=== PATIENT | female | born 1975 | race Caucasian/White ===

== ENCOUNTER 2024-04-12 11:01 | Emergency (ER) | payer OTHER ==
--- NOTE | 2024-04-12 11:13 | ER ---
Nurse's Notes [facility] Name: Hafsa Marin Age: 48 yrs Sex: Female : 1975 Arrival Date: 04/12/2024 Time: 11:01 Bed IW1 Private MD: Diagnosis: Periapical abscess without sinus Presentation: 04/12 11:07 Chief complaint: Patient states: "for the past 2 weeks, I've had an toothache and mb9 abscess. I've been to my dentist and he put me on antibiotics on 03/31. It's hurting.". Coronavirus screen: At this time, the client does not indicate any symptoms associated with coronavirus-19. Ebola Screen: No symptoms or risks identified at this time. Initial Sepsis Screen: Does the patient meet any 2 criteria? No. Patient's initial sepsis screen is negative. Does the patient have a suspected source of infection? No. Patient's initial sepsis screen is negative. Risk Assessment: Do you want to hurt yourself or someone else? Patient reports no desire to harm self or others. Onset of symptoms was 2023. 11:07 Method Of Arrival: Ambulatory mb9 11:07 Acuity: JANIS 4 mb9 Triage Assessment: 11:09 General: Appears in no apparent distress. Behavior is calm, cooperative. Pain: mb9 Complains of pain in mouth Quality of pain is described as throbbing. EENT: Oral mucosa is moist. Poor dentition noted. EENT: Reports pain in mouth. Neuro: Desouza Agitation-Sedation Scale (RASS): 0 - Alert and Calm Level of Consciousness is awake, alert, obeys commands, Oriented to person, place, time, situation, Appropriate for age. Cardiovascular: Patient's skin is warm and dry. Respiratory: Airway is patent Respiratory effort is even, unlabored, Respiratory pattern is regular, symmetrical. GI: No signs and/or symptoms were reported involving the gastrointestinal system. : No signs and/or symptoms were reported regarding the genitourinary system. Derm: Skin is pink, warm \\T\\ dry. Musculoskeletal: Range of motion: intact in all extremities. Historical: - Allergies: 11:08 PENICILLINS; mb9 11:08 Sulfa (Sulfonamide Antibiotics); mb9 - PMHx: 11:08 Fibromyalgia; Lupus erythematosus; mb9 - PSHx: 11:08 ablation; Cholecystectomy; L shoulder SX; laminectomy/discectomy; mb9 - Immunization history:: Adult Immunizations up to date. - Infectious Disease History:: Denies. - Social history:: Smoking status: Patient denies any tobacco usage or history of. Screenin:09 [facility] ED Fall Risk Assessment (Adult) History of falling in the last 3 months, mb9 including since admission No falls in past 3 months (0 pts) Confusion or Disorientation No (0 pts) Intoxicated or Sedated No (0 pts) Impaired Gait No (0 pts) Mobility Assist Device Used No (0 pt) Altered Elimination No (0 pt) Score/Fall Risk Level 0 - 2 = Low Risk Oriented to surroundings, Maintained a safe environment, Educated pt \\T\\ family on fall prevention, incl call for assistance when getting out of bed. Abuse screen: Denies threats or abuse. Nutritional screening: No deficits noted. Tuberculosis screening: No symptoms or risk factors identified. Vital Signs: 11:07 BP 153 / 88; Pulse 78; Resp 18; Temp 98.3(O); Pulse Ox 100% on R/A; Weight 72.57 kg; mb9 Height 5 ft. 9 in. ; Pain 10/10; 11:07 Body Mass Index 23.63 (72.57 kg, 175.26 cm) mb9 11:07 Pain Scale: Adult mb9 ED Course: 11:03 Patient arrived in ED. mg5 11:06 Julianne Westbrook FNP-C [facility]. kb 11:06 Danny Rocha MD is Attending Physician. kb 11:08 Triage completed. mb9 11:09 Arm band placed on. mb9 11:10 Patient has correct armband on for positive identification. Provided Education on: mb9 antibiotics . 11:10 No provider procedures requiring assistance completed. Patient did not have IV access mb9 during this emergency room visit. 11:12 Nina Pereira RN is Primary Nurse. mb9 Administered Medications: 11:10 Drug: Clindamycin PO 300 mg PO once Route: PO; mb9 11:16 Follow up: Response: No adverse reaction mb9 Medication: 11:10 VIS not applicable for this client. mb9 Outcome: 11:12 Discharge ordered by . nallely 11:16 Discharged to home ambulatory, mb9 11:16 Condition: stable 11:16 Discharge instructions given to patient, Instructed on discharge instructions, follow up and referral plans. Demonstrated understanding of instructions, follow-up care, medications, Prescriptions given X 1, 11:16 Patient left the ED. [email or web address] Signatures: Julianne Westbrook FNP-C FNP-Nina Humphrey RN RN [email or web address] Loreto Mello mg5 Corrections: (The following items were deleted from the chart) 11:11 11:07 Pulse 78bpm; Resp 18bpm; Pulse Ox 100%; vickey hurd
--- NOTE | 2024-04-12 11:13 | EDPHYS ---
Physician Documentation [facility] Name: Hafsa Marin Age: 48 yrs Sex: Female : 1975 Arrival Date: 04/12/2024 Time: 11:01 Bed IW1 Private MD: ED Physician Danny Rocha HPI: 04/12 11:14 This 48 yrs old Female presents to ER via Ambulatory with complaints of Toothache. kb 11:14 Pt is a 48 year old female who presents for tooth pain that started 2 weeks ago. States kb she has a long history of tooth abscesses, called her dentist and was prescribed clindamycin on 03/31/24. Completed antibiotics on 04/07 and was seen by dentist on 04/08. Has a root canal scheduled for 05/02/24 but is now having pain to another tooth on the same side that the dentist has been watching for a developing abscess. Came in to get another round of antibiotics and will call dentist on Sunday morning to try to get in sooner. Historical: - Allergies: 11:08 PENICILLINS; mb9 11:08 Sulfa (Sulfonamide Antibiotics); mb9 - PMHx: 11:08 Fibromyalgia; Lupus erythematosus; mb9 - PSHx: 11:08 ablation; Cholecystectomy; L shoulder SX; laminectomy/discectomy; mb9 - Immunization history:: Adult Immunizations up to date. - Infectious Disease History:: Denies. - Social history:: Smoking status: Patient denies any tobacco usage or history of. ROS: 11:12 Constitutional: As per HPI kb Exam: 11:12 Constitutional: This is a well developed, well nourished patient who is awake, alert, kb and in no acute distress. Head/Face: Normocephalic, atraumatic. Cardiovascular: Regular rate Respiratory: Respirations even and unlabored. No increased work of breathing. Talking in full sentences Abdomen/GI: Soft, non-tender. No distention Skin: Warm, dry with normal turgor. Normal color. MS/ Extremity: Pulses equal, no cyanosis. Neurovascular intact. Full, normal range of motion. Neuro: Awake and alert, GCS 15, oriented to person, place, time, and situation. Moves all extremities. Normal gait. 11:12 ENT: Dental exam: gum swelling, that is mild, specifically in the lower right second bicuspid (#29), lower right first molar (#30) and lower right second molar (#31), pain, that is moderate, specifically in the lower right second bicuspid (#29) and lower right first molar (#30), erythema to gums, Vital Signs: 11:07 BP 153 / 88; Pulse 78; Resp 18; Temp 98.3(O); Pulse Ox 100% on R/A; Weight 72.57 kg; mb9 Height 5 ft. 9 in. ; Pain 10/10; 11:07 Body Mass Index 23.63 (72.57 kg, 175.26 cm) mb9 11:07 Pain Scale: Adult mb9 MDM: 11:06 Patient medically screened. kb 11:13 Differential diagnosis: dental caries, gingivitis, dental abscess, pericoronitis. Data kb reviewed: vital signs, nurses notes. Counseling: I had a detailed discussion with the patient and/or guardian regarding the historical points, exam findings, and any diagnostic results supporting the discharge/admit diagnosis, the need for outpatient follow up, a dentist, to return to the emergency department if symptoms worsen or persist or if there are any questions or concerns that arise at home. 11:13 Test considered but Not performed: CT: ct considered but pt is well appearing, kb afebrile, no facial swelling. Administered Medications: 11:10 Drug: Clindamycin PO 300 mg PO once Route: PO; mb9 11:16 Follow up: Response: No adverse reaction mb9 Disposition: 12:06 Co-signature as Attending Physician, Danny Rocha MD I reviewed the patient's care rn provided by the Advanced Practice Provider and agree with the diagnosis and treatment plan. Disposition Summary: 04/12/24 11:12 Discharge Ordered Notes: Location: Home kb Condition: Stable kb Diagnosis - Periapical abscess without sinus kb Followup: kb - With: Emergency Department - When: As needed - Reason: Worsening of condition Followup: kb - With: Private Physician - When: 2 - 3 days - Reason: Recheck today's complaints, Continuance of care, Re-evaluation by your physician Discharge Instructions: - Discharge Summary Sheet kb - Dental Pain, [id number] kb - Dental Abscess, [id number] kb Forms: - Medication Reconciliation Form kb - Antibiotic Education kb - Prescription Opioid Use kb - Patient Portal Instructions kb - Leadership Thank You Letter kb Prescriptions: - Clindamycin HCl 300 mg Oral Capsule - take 1 capsule ORAL route every 6 hours for 10 days; 40 capsule; Refills: 0, kb Product Selection Permitted Signatures: Julianne Westbrook FNP-C FNP-Ckb Nieto, Roman, MD MD rn Wilkerson, Mary Beth, RN RN mb9
[2024-04-12 11:33] VITALS: BP 153/88; TEMP 98.3; O2SAT 100
== END 2024-04-12 11:16 | disposition home or self-care (01) ==
LOC: ER 11:01
DX: K04.7 Periapical abscess without sinus (principal)
CPT/HCPCS: 99283

== ENCOUNTER 2024-12-16 11:49 | Emergency (ER) | payer OTHER ==
--- NOTE | 2024-12-16 13:27 | RAD REPORT ---
EXAMINATION: ONE VIEW CHEST XR CLINICAL INDICATION: COVID +;Cough TECHNIQUE: Frontal chest projection is submitted. Examination is limited by patient positioning and t echnique. COMPARISON: No prior exam. FINDINGS: The lungs are well inflated and clear. The heart is upper limit of normal in size. No displaced fract ures identified. Proximal left humerus hardware. IMPRESSION: No acute intrathoracic abnormalities.
--- NOTE | 2024-12-16 14:29 | EDPHYS ---
Physician Documentation [facility] Name: Hafsa Marin Age: 48 yrs Sex: Female : 1975 Arrival Date: 12/16/2024 Time: 11:49 Bed DX3 Private MD: ED Physician Danny Rocha HPI: 12/17 07:22 This 48 yrs old Female presents to ER via Ambulatory with complaints of Covid+. rn 07:22 The patient or guardian reports cough. Onset: The symptoms/episode began/occurred 2 rn day(s) ago. Severity of symptoms: At their worst the symptoms were mild, in the emergency department the symptoms have resolved. The patient has experienced a previous episode. Patient reports COVID-positive, sick for 2 days with cough and congestion with fatigue. Denies shortness of breath. Came for medication. Reports has lupus.. 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 - Infectious Disease History:: Denies. - Social history:: Smoking status: Patient denies any tobacco usage or history of. - Family history:: not pertinent. - Hospitalizations: : No recent hospitalization is reported. ROS: 12/17 07:22 Constitutional: Positive for subjective fever and chills Cardiovascular: Negative for rn chest pain, palpitations, and edema, Respiratory: Positive for cough, negative for shortness of breath Abdomen/GI: Positive for decreased appetite, negative for abdominal pain Neuro: Positive for headache and generalized malaise Exam: 07:22 Constitutional: This is a well developed, well nourished patient who is awake, alert, rn and in no acute distress. Cardiovascular: Regular rate and rhythm. No pulse deficits. Respiratory: Speaking full sentences, unlabored. No increased work of breathing or retractions Neuro: Awake and alert, GCS 15 Vital Signs: 12/16 12:17 BP 127 / 87; Pulse 84; Resp 18; Temp 98.4; Pulse Ox 100% ; Weight 72.57 kg; Height 5 ap3 ft. 9 in. ; Pain 4/10; 12:17 Body Mass Index 23.63 (72.57 kg, 175.26 cm) ap3 12:17 Pain Scale: Adult ap3 MDM: 11:58 Medical Screening Exam initiated rn 12/17 07:22 Differential Diagnosis: Bronchitis Upper Respiratory Infection Viral Syndrome rn Pneumonia. Data reviewed: vital signs, nurses notes, radiologic studies, plain films, and as a result, I will discharge patient. Independent interpretation of the following test(s) in the Emergency Department X-Ray: My interpretation is Chest x-ray images negative for pneumonia per my interpretation. Counseling: I had a detailed discussion with the patient and/or guardian regarding the historical points, exam findings, and any diagnostic results supporting the discharge/admit diagnosis, radiology results, the need for outpatient follow up, to return to the emergency department if symptoms worsen or persist or if there are any questions or concerns that arise at home. Special discussion: I discussed with the patient/guardian in detail that at this point there is no indication for admission to the hospital. It is understood, however, that if the symptoms persist or worsen the patient needs to return immediately for re-evaluation. 12/16 12:02 Order name: XRAY Chest (1 view); Complete Time: 14:28 rn Administered Medications: No medications were administered Disposition Summary: 12/16/24 14:28 Discharge Ordered Notes: Location: Home rn Problem: new rn Symptoms: are unchanged rn Condition: Stable rn Diagnosis - SARS-associated coronavirus as the cause of diseases classified elsewhere rn Followup: rn - With: Private Physician - When: As needed - Reason: Recheck today's complaints, Re-evaluation by your physician Discharge Instructions: - Discharge Summary Sheet rn - COVID-19 rn - 10 Things You Can Do to Manage Your COVID-19 Symptoms at Home - [facility] (04/22/2021) rn Forms: - Medication Reconciliation Form rn - Antibiotic rn first assistant - Prescription Opioid Use rn - Patient Portal Instructions rn - Leadership Thank You Letter rn Prescriptions: - Paxlovid 300 mg (150 mg x 2)-100 mg Oral Tablet, Dose Pack - take 1 dose pack ORAL route as directed on dose pack for 5 days take TWO 150 mg rn tablets of nirmatrelvir with ONE 100 mg tablet of ritonavir twice daily for 5 days; 1 packet; Refills: 0, Product Selection Permitted Signatures: Dispatcher [employer] EDDanny Jacob MD MD rn Sadaf Grider RN RN ap3
--- NOTE | 2024-12-16 14:29 | ER ---
Nurse's Notes [facility] Name: Hafsa Marin Age: 48 yrs Sex: Female : 1975 Arrival Date: 12/16/2024 Time: 11:49 Bed DX3 Private MD: Diagnosis: SARS-associated coronavirus as the cause of diseases classified elsewhere Presentation: 12/16 12:17 Chief complaint: Patient states: she has been having covid symptoms since 12/14/24. ap3 .patient is complaining of sore throat, cough, runny nose, nausea, painful breathing and body aches. Coronavirus screen: Client presents with at least one sign or symptom that may indicate coronavirus-19. Ebola Screen: No symptoms or risks identified at this time. Initial Sepsis Screen: Does the patient meet any 2 criteria? No. Patient's initial sepsis screen is negative. Does the patient have a suspected source of infection? No. Patient's initial sepsis screen is negative. Risk Assessment: Do you want to hurt yourself or someone else? Patient reports no desire to harm self or others. Onset of symptoms was December 14, 2024. 12:17 Method Of Arrival: Ambulatory ap3 12:17 Acuity: JANIS 3 ap3 Triage Assessment: 12:19 General: Appears in no apparent distress. Behavior is calm, cooperative, appropriate ap3 for age. Pain: Complains of pain in body aches. Neuro: Level of Consciousness is awake, alert, obeys commands, Oriented to person, place, time, situation, Appropriate for age. Cardiovascular: Patient's skin is warm and dry. Respiratory: Airway is patent Respiratory effort is even, unlabored, Respiratory pattern is regular, symmetrical. Respiratory: Reports cough that is. 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 - Infectious Disease History:: Denies. - Social history:: Smoking status: Patient denies any tobacco usage or history of. - Family history:: not pertinent. - Hospitalizations: : No recent hospitalization is reported. Screenin:20 [facility] ED Fall Risk Assessment (Adult) History of falling in the last 3 months, ap3 including since admission No falls in past 3 months (0 pts) Confusion or Disorientation No (0 pts) Intoxicated or Sedated No (0 pts) Impaired Gait No (0 pts) Mobility Assist Device Used No (0 pt) Altered Elimination No (0 pt) Score/Fall Risk Level 0 - 2 = Low Risk Oriented to surroundings, Maintained a safe environment, Educated pt \T\ family on fall prevention, incl call for assistance when getting out of bed, Assessed \T\ reinforced patient's understanding of fall precautions, Hourly rounding (assess needs \T\ fall precautionary measures) done, Used ambulatory aids as needed (educated on \T\ assisted with). Abuse screen: Denies threats or abuse. Nutritional screening: No deficits noted. Tuberculosis screening: No symptoms or risk factors identified. Vital Signs: 12:17 BP 127 / 87; Pulse 84; Resp 18; Temp 98.4; Pulse Ox 100% ; Weight 72.57 kg; Height 5 ap3 ft. 9 in. ; Pain 4/10; 12:17 Body Mass Index 23.63 (72.57 kg, 175.26 cm) ap3 12:17 Pain Scale: Adult ap3 ED Course: 11:52 Patient arrived in ED. mr 11:58 Danny Rocha MD is Attending Physician. rn 12:19 Triage completed. ap3 12:20 Arm band placed on right wrist. ap3 13:22 XRAY Chest (1 view) In Process Unspecified. EDMS 14:35 Patient has correct armband on for positive identification. Provided Education on: ap3 discharge instructions. 14:35 No provider procedures requiring assistance completed. Patient did not have IV access ap3 during this emergency room visit. Administered Medications: No medications were administered Medication: 14:36 VIS not applicable for this client. ap3 Outcome: 14:28 Discharge ordered by . rn 14:35 Discharged to home ambulatory, ap3 14:35 Condition: good 14:35 Discharge instructions given to patient, Instructed on discharge instructions, follow up and referral plans. medication usage, Demonstrated understanding of instructions, follow-up care, medications, Prescriptions given X 1, 14:36 Patient left the ED. ap3 Signatures: Dispatcher [employer] Nina Hutton, Reg Reg Danny Burroughs MD MD rn Prokisch, Amanda, RN RN ap3
[2024-12-16 14:43] VITALS: BP 127/87; TEMP 98.4; O2SAT 100
== END 2024-12-16 14:36 | disposition home or self-care (01) ==
LOC: ER 11:49
DX: U07.1 COVID-19 (principal)
CPT/HCPCS: 71045; 99283

== ENCOUNTER 2025-01-15 17:27 | Inpatient (IN) | payer OTHER ==
[2025-01-15] MEDS ORDERED: METOCLOPRAMIDE 10 MG/2mL INJ ONE (18:18)
[2025-01-15] MEDS ORDERED: NA CHLORIDE 0.9% 1,000 ML ONE ×2 (18:19→20:57)
[2025-01-15] MEDS ORDERED: NA CHLORIDE 0.9% 50 ML ONE (18:19)
[2025-01-15] MEDS ORDERED: MORPHINE 4 MG/ML SYR ONE (18:19)
[2025-01-15 18:29] LABS: Absolute Eosinophils 0.1 K/uL (0-0.5); Absolute Monocytes 0.8 K/uL (0.1-1.3); Absolute Neutrophil 8.1 K/uL (1.8-8.0); Basophils % 0.3 % (0-1.3); Eosinophils % 0.5 % (0-4.4); Hematocrit 36.3 % (36.0-45.0); Hemoglobin 12.8 g/dL (12.0-15.0); Lymphocytes % 9.9 % (15.3-44.8); MCH 34.6 pg (27.0-35.0); MCHC 35.2 g/dL (32.0-36.0); MCV 98.3 fL (80-100); MPV 7.4 fL (7.6-11.3); Monocytes % 7.7 % (3.3-12.3); Neutrophils % 81.6 % (41.7-73.7); Platelets 349 thou/uL (152-406); Red Cell Distribution Width 13.5 % (12.1-15.2)
[2025-01-15 18:37] LABS: PT Prothrombin Time 11.4 SECONDS (10-13.0)
[2025-01-15 18:53] LABS: ALT/SGPT 23 U/L (13-56); AST/SGOT 22 U/L (15-37); Albumin 3.5 g/dL (3.4-5.0); Albumin/Globulin Ratio 1.1 (1.1-1.8); Alkaline Phosphatase 63 U/L (45-117); Anion Gap 8.6 mEq/L (5.0-15.0); BUN Blood Urea Nitrogen 7 mg/dL (7-18); Bicarbonate 28 mEq/L (21-32); Bilirubin Total 0.5 mg/dL (0.2-1.0); Globulin 3.1 g/dL (2.3-3.5); Glomerular Filtration Rate 100 ml/min (=/>90); Glucose Level 141 mg/dL (74-106); Magnesium 2.1 mg/dL (1.6-2.4); Potassium 3.6 mEq/L (3.5-5.1); Protein, Total 6.6 g/dL (6.4-8.2); Sodium Level 140 mEq/L (136-145); Troponin High Sensitivity 3.9 pg/mL (<58.9)
[2025-01-15 18:54] LABS: Bilirubin Direct < 0.2 mg/dL (0-0.2); Bilirubin Indirect, Calculated 0.3 mg/dL (0.2-0.8); Lipase > 5000 U/L (13-75)
--- NOTE | 2025-01-15 19:10 | RAD REPORT ---
EXAMINATION: ONE VIEW CHEST XR CLINICAL INDICATION: Female, 49 years old.,upper abdomen pain TECHNIQUE: Frontal chest projection is submitted. Examination is limited by patient positioning and t echnique. COMPARISON: 12/16/2024 FINDINGS: Hazy left perihilar opacity. Decreased inspiratory effort limits evaluation. No pneumothorax or siza ble effusion. The heart is normal in size. Mediastinal contours are unremarkable. IMPRESSION: Hazy left perihilar opacity which could reflect atelectasis or early airspace disease.
[2025-01-15] MEDS ORDERED: DIAZEPAM 10 MG/2 ML INJ SYRINGE ONE (19:19)
--- NOTE | 2025-01-15 20:40 | RAD REPORT ---
EXAMINATION: CT Abdomen Pelvis W Contrast CLINICAL INDICATION: Female, 49 years old. ABD PAIN TECHNIQUE: CT abdomen and pelvis was performed, after the administration of IV contrast, as per [facility] protocol. Axial, sagittal and coronal reconstructions were obtained. One or more of the following dose reduction techniques were used: Automated exposure control, adjustment of the mA and k V according to patient size, and iterative reconstruction. Unless otherwise specified, incidental findings do not require dedicated imaging follow-up. COMPARISON: No prior exam. FINDINGS: LOWER CHEST: The visualized lung bases are clear. LIVER: Normal in size and contour. No focal lesion. BILIARY SYSTEM: Status post cholecystectomy. Mild central pneumobilia. CBD stent in place. SPLEEN: Normal size. No focal lesion. PANCREAS: Swelling of the body and tail of the pancreas, with prominent surrounding fat stranding and nonlocalized fluid tracking along the retroperitoneum to the left paracolic gutter. No mass, ductal dilation. ADRENALS: Normal; no mass. KIDNEYS: Normal size and contour. No hydronephrosis. URINARY BLADDER: Unremarkable. GASTROINTESTINAL TRACT: No evidence of free air, bowel obstruction or abscess. APPENDIX: Normal appendix. LYMPH NODES: No lymphadenopathy. MUSCULOSKELETAL: No acute or suspicious osseous abnormality. ADDITIONAL FINDINGS: Bilateral adnexal cystic lesions, with posterior trace pelvic fluid. Largest cys tic lesion is on the right measuring 3.8 cm. Uterus is retroverted. IMPRESSION: Sequelae of acute pancreatitis of the body and tail of the pancreas. Trace pelvic fluid, likely physiologic, with bilateral adnexal cystic lesions. THIS REPORT CONTAINS FINDINGS THAT MAY BE CRITICAL TO PATIENT CARE. The findings were verbally commun icated via telephone to Marianna Goldberg M.D. on 01/15/2025 8:33 PM.
[2025-01-15] MEDS ORDERED: HYDROMORPHONE HCL 1 MG/ML INJ ONE ×2 (20:57→22:41)
--- NOTE | 2025-01-15 23:12 | ER ---
Nurse's Notes [facility] Name: Hafsa Marin Age: 49 yrs Sex: Female : 1975 Arrival Date: 01/15/2025 Time: 17:27 Bed 6 Private MD: Diagnosis: Acute pancreatitis without necrosis or infection, unspecified Presentation: 01/15 18:04 Chief complaint: Patient states: had an ERCP this morning , had lunch, took a nap and iw then she vomited and now is having pain in upper abdomen. Coronavirus screen: At this time, the client does not indicate any symptoms associated with coronavirus-19. Ebola Screen: No symptoms or risks identified at this time. Initial Sepsis Screen: Does the patient meet any 2 criteria? No. Patient's initial sepsis screen is negative. Does the patient have a suspected source of infection? No. Patient's initial sepsis screen is negative. Risk Assessment: Do you want to hurt yourself or someone else? Patient reports no desire to harm self or others. Onset of symptoms was January 15, 2025. 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 - Infectious Disease History:: Denies. - Social history:: Smoking status: unknown. Screenin:34 [facility] ED Fall Risk Assessment (Adult) History of falling in the last 3 months, ph including since admission No falls in past 3 months (0 pts) Confusion or Disorientation No (0 pts) Intoxicated or Sedated No (0 pts) Impaired Gait No (0 pts) Mobility Assist Device Used No (0 pt) Altered Elimination No (0 pt) Score/Fall Risk Level 0 - 2 = Low Risk Oriented to surroundings, Maintained a safe environment, Hourly rounding (assess needs \T\ fall precautionary measures) done. Abuse screen: Denies threats or abuse. Denies injuries from another. Nutritional screening: No deficits noted. Tuberculosis screening: No symptoms or risk factors identified. Assessment: 18:35 General: Appears in no apparent distress. uncomfortable, well groomed, Behavior is ph calm, cooperative, appropriate for age. Pain: Complains of pain in epigastric area, right upper quadrant and left upper quadrant. Neuro: Level of Consciousness is awake, alert, obeys commands, Oriented to person, place, time, situation. Cardiovascular: Capillary refill < 3 seconds in bilateral fingers Patient's skin is warm and dry. Respiratory: Airway is patent Respiratory effort is even, unlabored. GI: Abdomen is non-distended, Bowel sounds present X 4 quads. Abd is soft X 4 quads Reports upper abdominal pain, nausea, vomiting. Derm: Skin is pink, warm \T\ dry. 19:10 Reassessment: Patient appears in no apparent distress at this time. Patient and/or bm8 family updated on plan of care and expected duration. Pain level reassessed. Patient is alert, oriented x 3, equal unlabored respirations, skin warm/dry/pink. received report from BILL DAMON PT is lying on side c/o spasming abd and requesting pain medication. 20:17 Reassessment: Patient and/or family updated on plan of care and expected duration. Pain bm8 level reassessed. Patient is alert, oriented x 3, equal unlabored respirations, skin warm/dry/pink. Patient states symptoms have improved. 22:14 Reassessment: Patient appears in no apparent distress at this time. Patient and/or bm8 family updated on plan of care and expected duration. Pain level reassessed. Patient is alert, oriented x 3, equal unlabored respirations, skin warm/dry/pink. Patient states feeling better. Patient states symptoms have improved. Vital Signs: 18:04 BP 124 / 85; Pulse 74; Resp 18; Temp 97.6; Pulse Ox 98% on R/A; Weight 72.57 kg; Height iw 5 ft. 9 in. ; Pain 10/10; 18:36 BP 120 / 79; Pulse 70; Resp 18; Pulse Ox 95% on R/A; ph 20:17 BP 128 / 86; Pulse 64; Resp 18; Temp 97.6; Pulse Ox 99% ; Pain 2/10; bm8 22:14 BP 121 / 84; Pulse 65; Resp 18; Temp 97.6; Pulse Ox 96% on R/A; Pain 3/10; bm8 01/16 00:22 BP 130 / 81; Pulse 96; Resp 18; Temp 97.6; Pulse Ox 96% ; Pain 7/10; bm8 01/15 18:04 Body Mass Index 23.63 (72.57 kg, 175.26 cm) iw 01/15 18:04 Pain Scale: Adult iw 20:17 Pain Scale: Adult bm8 22:14 Pain Scale: Adult bm8 01/16 00:22 Pain Scale: Adult bm8 Jm Coma Score: 01/15 19:10 Eye Response: spontaneous(4). Motor Response: obeys commands(6). Verbal Response: bm8 oriented(5). Total: 15. 20:17 Eye Response: spontaneous(4). Motor Response: obeys commands(6). Verbal Response: bm8 oriented(5). Total: 15. 22:14 Eye Response: spontaneous(4). Motor Response: obeys commands(6). Verbal Response: bm8 oriented(5). Total: 15. 01/16 00:22 Eye Response: spontaneous(4). Motor Response: obeys commands(6). Verbal Response: bm8 oriented(5). Total: 15. ED Course: 01/15 17:39 Patient arrived in ED. iw 17:48 Valdo Dejesus PA is PHCP. cp 17:48 Yordy Daily DO is Attending Physician. cp 18:05 Triage completed. iw 18:06 Arm band placed on. iw 18:08 Patient placed in an exam room, on a stretcher. ll1 18:11 Franci Sierra, RN is Primary Nurse. ph 18:23 XRAY Chest (1 view) In Process Unspecified. EDMS 18:35 Patient has correct armband on for positive identification. Bed in low position. Call ph light in reach. Side rails up X 1. Pulse ox on. NIBP on. Door closed. Noise minimized. Lights dimmed. Warm blanket given. Pillow given. 18:36 Initial lab(s) drawn, by ED staff, sent to lab. EKG done, by ED staff, reviewed by tasneem BILLS. Inserted saline lock: 20 gauge in right antecubital area, using aseptic technique. Blood collected. Flushed with 10 mL NS. 20:04 CT Abd/Pelvis - IV Contrast Only In Process Unspecified. EDMS 22:14 Provided Education on:. bm8 22:35 First set of blood cultures drawn by me. oe 22:50 Second set of blood cultures drawn by me. oe 23:00 Lactate w/ 2H reflex if indic. Sent. oe 23:00 Blood Culture Adult (2) Sent. oe 23:10 Prince Wade MD is Hospitalizing Provider. cp 01/16 00:23 No provider procedures requiring assistance completed. Patient admitted, IV remains in bm8 place. Administered Medications: 01/15 18:31 Drug: NS 0.9% IV 1000 ml IV at 1 bolus Per protocol; to be given as a bolus over 60 ph minutes Route: IV; Rate: 1 bolus; Site: right antecubital; 22:17 Follow up: Response: No adverse reaction; IV Status: Completed infusion bm8 18:32 Drug: metoCLOPramide IVP 10 mg IVP once; over 1 to 2 minutes Route: IVP; Site: right ph antecubital; 19:04 Follow up: Response: No adverse reaction; Nausea is decreased; Vomiting decreased ph 18:32 Drug: morphine IVP or IV 4 mg IVP once over 4 mins Route: IVP; Infused Over: 4 mins; ph Site: right antecubital; 19:04 Follow up: Response: No adverse reaction; Pain is decreased ph 19:20 Drug: Diazepam IVP 5 mg IVP once Route: IVP; Site: right antecubital; bm8 20:19 Follow up: Response: No adverse reaction bm8 21:04 Drug: NS 0.9% IV 1000 ml IV at 1000 ml once; to be given as a bolus over 60 minutes bm8 Route: IV; Rate: 1000 ml; Site: right antecubital; 22:16 Follow up: Response: No adverse reaction; IV Status: Completed infusion bm8 21:04 Drug: HYDROmorphone IVP 1 mg IVP once Route: IVP; Site: right antecubital; bm8 22:16 Follow up: Response: No adverse reaction bm8 22:42 Drug: HYDROmorphone IVP 1 mg IVP once Route: IVP; Site: right antecubital; bm8 01/16 00:02 Follow up: Response: No adverse reaction bm8 Medication: 01/15 18:35 VIS not applicable for this client. ph Outcome: 23:11 Decision to Hospitalize by Provider. cp 01/16 00:23 Admitted to Med/surg accompanied by nurse, via stretcher, room 216, with chart, bm8 Condition: stable Instructed on follow up and referral plans. the need for admit, Demonstrated understanding of instructions, follow-up care, medications, 00:45 Patient left the ED. bm8 Signatures: Dispatcher [employer] EDGracy Dennison, RN RN iw Franci Sierra RN RN ph Valdo Dejesus, NEGAR PA Jaxon Laura Lynsay, RN RN ll1 Karthik Page RN RN bm8 Corrections: (The following items were deleted from the chart) 01/15 18:06 18:04 BP 124 / 85; Pulse 74bpm; Resp 18bpm; Pulse Ox 98% RA; Temp 97.6F; iw iw
--- NOTE | 2025-01-15 23:12 | EDPHYS ---
Physician Documentation [facility] Name: Hafsa Marin Age: 49 yrs Sex: Female : 1975 Arrival Date: 01/15/2025 Time: 17:27 Bed 6 Private MD: ED Physician Yordy Daily HPI: 01/15 18:10 This 49 yrs old Female presents to ER via Ambulatory with complaints of Abdominal Pain, cp Vomiting. 18:10 The patient presents with abdominal pain in the epigastric area, in the upper abdomen. cp Onset: The symptoms/episode began/occurred today. The symptoms radiate to back. Associated signs and symptoms: Pertinent positives: nausea and vomiting, Pertinent negatives: constipation, diarrhea, fever. The symptoms are described as constant. 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 - Infectious Disease History:: Denies. - Social history:: Smoking status: unknown. ROS: 18:15 Constitutional: Negative for body aches, chills, fever, cp 18:15 Eyes: Negative for injury, pain, redness, and discharge, cp 18:15 ENT: Negative for drainage from ear(s), ear pain, sore throat, difficulty swallowing, difficulty handling secretions, 18:15 Cardiovascular: Negative for chest pain, edema, palpitations, 18:15 Respiratory: Negative for cough, shortness of breath, wheezing, 18:15 Abdomen/GI: Positive for abdominal pain, nausea and vomiting, of the epigastric area, right upper quadrant and left upper quadrant, Negative for diarrhea, constipation, 18:15 Back: Positive for radiated pain, 18:15 Neuro: Negative for altered mental status, dizziness, headache, weakness, 18:15 All other systems are negative, Exam: 18:20 Constitutional: The patient appears in no acute distress, alert, awake, cp non-diaphoretic, non-toxic, well developed, well nourished, uncomfortable, 18:20 Head/Face: Normocephalic, atraumatic. cp 18:20 Eyes: Periorbital structures: appear normal, Conjunctiva: normal, no exudate, no injection, Sclera: no appreciated abnormality, Lids and lashes: appear normal, bilaterally, 18:20 ENT: External ear(s): are unremarkable, Nose: is normal, Mouth: Lips: moist, Oral mucosa: moist, Posterior pharynx: Airway: no evidence of obstruction, patent, 18:20 Neck: ROM/movement: is normal, is supple, without pain, no range of motions limitations, 18:20 Chest/axilla: Inspection: normal, 18:20 Cardiovascular: Rate: normal, Rhythm: regular, Edema: is not appreciated, JVD: is not appreciated, 18:20 Respiratory: the patient does not display signs of respiratory distress, Respirations: normal, no use of accessory muscles, no retractions, labored breathing, is not present, Breath sounds: are clear throughout, no decreased breath sounds, no stridor, no wheezing, 18:20 Abdomen/GI: Inspection: abdomen appears normal, Bowel sounds: active, all quadrants, Palpation: soft, in all quadrants, severe abdominal tenderness, in the epigastric area, right upper quadrant and left upper quadrant, rebound tenderness, is not appreciated, voluntary guarding, is elicited in the epigastric area, right upper quadrant and left upper quadrant, 18:20 Neuro: Orientation: to person, place \T\ time. Mentation: is normal, Motor: moves all fours, strength is normal, 18:30 ECG was reviewed by the Attending Physician. cp Vital Signs: 18:04 BP 124 / 85; Pulse 74; Resp 18; Temp 97.6; Pulse Ox 98% on R/A; Weight 72.57 kg; Height iw 5 ft. 9 in. ; Pain 10/10; 18:36 BP 120 / 79; Pulse 70; Resp 18; Pulse Ox 95% on R/A; ph 20:17 BP 128 / 86; Pulse 64; Resp 18; Temp 97.6; Pulse Ox 99% ; Pain 2/10; bm8 22:14 BP 121 / 84; Pulse 65; Resp 18; Temp 97.6; Pulse Ox 96% on R/A; Pain 3/10; bm8 04/11 00:22 BP 130 / 81; Pulse 96; Resp 18; Temp 97.6; Pulse Ox 96% ; Pain 7/10; bm8 01/15 18:04 Body Mass Index 23.63 (72.57 kg, 175.26 cm) iw 01/15 18:04 Pain Scale: Adult iw 20:17 Pain Scale: Adult bm8 22:14 Pain Scale: Adult bm8 01/16 00:22 Pain Scale: Adult bm8 Jm Coma Score: 01/15 19:10 Eye Response: spontaneous(4). Motor Response: obeys commands(6). Verbal Response: bm8 oriented(5). Total: 15. 20:17 Eye Response: spontaneous(4). Motor Response: obeys commands(6). Verbal Response: bm8 oriented(5). Total: 15. 22:14 Eye Response: spontaneous(4). Motor Response: obeys commands(6). Verbal Response: bm8 oriented(5). Total: 15. 01/16 00:22 Eye Response: spontaneous(4). Motor Response: obeys commands(6). Verbal Response: bm8 oriented(5). Total: 15. MDM: 01/15 18:04 Medical Screening Exam initiated cp 20:45 Data reviewed: vital signs, nurses notes, lab test result(s), EKG, radiologic studies, cp CT scan, and as a result, I will admit patient. 20:56 ED course: spoke with Shoshana PEREZ, who will speak with DR Pierre concerning patient. cp 22:21 ED course: msg left on voicemail of DR Pierre for consult on patient as requested by DR noah Wade who requests GI consult. 22:55 ED course: no response from DR Pierre for consult. cp 01/15 18:08 Order name: Basic Metabolic Panel; Complete Time: 19:08 cp 01/15 19:08 Interpretation: Normal except: GLUC 141. cp 01/15 18:08 Order name: CBC with Diff; Complete Time: 19:08 cp 01/15 19:09 Interpretation: Normal except: RBC 3.70; MPV 7.4; YUDY% 81.6; LYM% 9.9; NEUT A 8.1. cp 01/15 18:08 Order name: LFT's; Complete Time: 19:08 cp 01/15 18:08 Order name: Magnesium; Complete Time: 19:08 cp 01/15 18:08 Order name: PT-INR; Complete Time: 19:08 cp 01/15 18:08 Order name: Troponin HS; Complete Time: 19:08 cp 01/15 18:08 Order name: Lipase; Complete Time: 19:08 cp 01/15 19:09 Interpretation: Abnormal: LIP > 5000. cp 01/15 20:49 Order name: Lactate w/ 2H reflex if indic. cp 01/15 20:49 Order name: Blood Culture Adult (2) cp 01/15 23:35 Order name: Magnesium EDMS 01/15 23:35 Order name: Phosphorus EDMS 01/15 23:35 Order name: Urinalysis w/ reflexes EDMS 01/15 23:35 Order name: CBC with Automated Diff EDMS 01/15 23:35 Order name: CBC with Automated Diff EDMS 01/15 23:35 Order name: Comprehensive Metabolic Panel EDNH 01/15 23:35 Order name: Comprehensive Metabolic Panel EDMS 01/15 18:08 Order name: XRAY Chest (1 view); Complete Time: 19:45 cp 01/15 19:45 Interpretation: Report review. 01/15 19:10 Order name: CT Abd/Pelvis - IV Contrast Only; Complete Time: 20:42 cp 01/15 20:42 Interpretation: Report reviewed. 01/15 18:08 Order name: Cardiac monitoring; Complete Time: 18:32 cp 01/15 18:08 Order name: EKG - Nurse/Tech; Complete Time: 18:32 cp 01/15 18:08 Order name: IV Saline Lock; Complete Time: 18:32 cp 01/15 18:08 Order name: Labs collected and sent; Complete Time: 18:32 cp 01/15 18:08 Order name: O2 Per Protocol; Complete Time: 18:32 cp 01/15 18:08 Order name: O2 Sat Monitoring; Complete Time: 18:32 cp EC:30 Rate is 63 beats/min. Rhythm is regular. FL interval is normal. QRS interval is normal. cp QT interval is normal. T waves are Inverted in leads aVL, aVR. Interpreted by me. Reviewed by me. Administered Medications: 18:31 Drug: NS 0.9% IV 1000 ml IV at 1 bolus Per protocol; to be given as a bolus over 60 ph minutes Route: IV; Rate: 1 bolus; Site: right antecubital; 22:17 Follow up: Response: No adverse reaction; IV Status: Completed infusion bm8 18:32 Drug: metoCLOPramide IVP 10 mg IVP once; over 1 to 2 minutes Route: IVP; Site: right ph antecubital; 19:04 Follow up: Response: No adverse reaction; Nausea is decreased; Vomiting decreased ph 18:32 Drug: morphine IVP or IV 4 mg IVP once over 4 mins Route: IVP; Infused Over: 4 mins; ph Site: right antecubital; 19:04 Follow up: Response: No adverse reaction; Pain is decreased ph 19:20 Drug: Diazepam IVP 5 mg IVP once Route: IVP; Site: right antecubital; bm8 20:19 Follow up: Response: No adverse reaction bm8 21:04 Drug: NS 0.9% IV 1000 ml IV at 1000 ml once; to be given as a bolus over 60 minutes bm8 Route: IV; Rate: 1000 ml; Site: right antecubital; 22:16 Follow up: Response: No adverse reaction; IV Status: Completed infusion bm8 21:04 Drug: HYDROmorphone IVP 1 mg IVP once Route: IVP; Site: right antecubital; bm8 22:16 Follow up: Response: No adverse reaction bm8 22:42 Drug: HYDROmorphone IVP 1 mg IVP once Route: IVP; Site: right antecubital; bm8 01/16 00:02 Follow up: Response: No adverse reaction bm8 Disposition: 01/15 22:21 I was immediately available on-site in the Emergency Department for consultation in the ms3 care of the patient. Disposition Summary: 01/15/25 23:11 Hospitalization Ordered Notes: Hospitalization Status: Inpatient Admission cp Provider: Prince noah Wade Location: Telemetry/MedSurg (Inpatient) cp Condition: Stable cp Problem: new cp Symptoms: have improved cp Bed/Room Type: Standard cp Room Assignment: 216(01/15/25 23:46) rv1 Diagnosis - Acute pancreatitis without necrosis or infection, unspecified cp Forms: - Medication Reconciliation Form cp - SBAR form cp - Leadership Thank You Letter cp Signatures: Dispatcher [employer] Gracy Thurston RN RN iw Hall, Patricia, RN RN ph Page, Corey, PA PA cp Sims, Marcus, DO DO ms3 Cheryle Lea rv1 Karthik Page, RN RN bm8 Corrections: (The following items were deleted from the chart) 18:08 18:08 BASIC METABOLIC PANEL+C.LAB.BRZ ordered. EDMS EDMS 18:08 18:08 CBC+H.LAB.BRZ ordered. EDMS EDMS 18:08 18:08 HEPATIC FUNCTION+C.LAB.BRZ ordered. EDMS EDMS 18:08 18:08 MAGNESIUM+C.LAB.BRZ ordered. EDMS EDMS 18:08 18:08 PROTIME (+INR)+COAG.LAB.BRZ ordered. EDMS EDMS 18:08 18:08 Troponin High Sensitivity+C.LAB.BRZ ordered. EDMS EDMS 18:08 18:08 LIPASE+C.LAB.BRZ ordered. EDMS EDMS 18:08 18:08 Chest Single View+RAD.RAD.BRZ ordered. EDMS EDMS 23:46 23:11 cp rv1
[2025-01-15] MEDS ORDERED: SODIUM CHLORIDE 0.9% 10ML INJ IV PRN (23:33)
--- NOTE | 2025-01-15 23:41 | P.HP ---
Certification for Inpatient Patient admitted to: Observation With expected LOS: <2 Midnights Practitioner: I am a practitioner with admitting privileges, knowledge of patient current condition, hospital course, and medical plan of care. Services: Services provided to patient in accordance with Admission requirements found in Title 42 Section 412.3 of the Code of Federal Regulations Patient History Date of Service: 01/15/25 Reason for admission: Intractable nausea and vomiting, abdominal pain History of Present Illness: Patient is a 49-year-old female with known past medical history of SLE currently on Plaquenil, and recently choledocholithiasis status post ERCP with common bile duct stent placement on 01/15. She presented to the ER a few hours after her procedure complaining of intractable nausea and vomiting, and abdominal pain. Patient was on clear liquid during the days leading up to her procedure. She states that she tried a hamburger after her procedure and developed the above symptoms. She is reporting a mildly bilious vomiting, nonbloody. She also has extreme abdominal pain. Denies fever or chills. CT abdomen and pelvis in the ER revealed sequela of pancreatitis. She has a lipase of more than 5000 and normal LFTs including bilirubin. 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 ER was unable to reach her. ER eventually reached out to Dr. Mercado, who stated to be willing to see the patient tomorrow if needed. Physical Examination - Physical Exam General: Acute distress HEENT: Atraumatic, Normocephalic, Sclerae nonicteric Cardiovascular: No edema, Normal pulses, Regular rate/rhythm, Normal S1 S2 Gastrointestinal: Tenderness Neurological: Normal speech - Studies Laboratory Data (last 24 hrs) 01/15/25 01/15/25 01/15/25 18:23 18:23 18:23 WBC 10.00 Hgb 12.8 Hct 36.3 Plt Count 349 PT 11.4 INR 1.00 Sodium 140 Potassium 3.6 BUN 7 Creatinine 0.73 Glucose 141 H Magnesium 2.1 Total Bilirubin 0.5 AST 22 ALT 23 Alkaline Phosphatase 63 Lipase > 5000 H Assessment and Plan - Problems (Diagnosis) (1) Post-ERCP acute pancreatitis Current Visit: Yes Status: Acute (2) Intractable nausea and vomiting Current Visit: Yes Status: Acute (3) SLE (systemic lupus erythematosus related syndrome) Current Visit: Yes Status: Acute - Plan Assessment This is a 49-year-old female who undergo ERCP and biliary stent placement today. She presented few hours after procedure for postprandial abdominal pain. Patient has been on clear liquid for several days and tried hamburger after her ERCP. She has evidence of pancreatitis with lipase more than 5000. CT abdomen and pelvis also revealed evidence of pancreatitis. Acute post ERCP pancreatitis Intractable nausea and vomiting SLE Plan: Will admit under observation Aggressive volume repletion with normal saline 150 cc/h N.p.o. for bowel rest Antiemetics and PPI on board Consult GI if needed. Please attempt to reach out to Dr. Lugo first, and if unavailable, reach out to Dr. Mcdaniel who is willing to see the patient if needed Patient is full code - Advance Directives Does patient have a Living Will: No Does patient have a Durable POA for Healthcare: No
[2025-01-15] MEDS ORDERED: NA CHLORIDE 0.9% 1,000 ML IV SCH (23:45)
[2025-01-16 01:29] VITALS: BMI 23.1
[2025-01-16] MEDS: ONDANSETRON 4 MG/2 ML VIAL IV PRN ×3 (01:40→21:44)
[2025-01-16] MEDS: HYDROMORPHONE HCL 1 MG/ML INJ IV PRN (01:40)
[2025-01-16] MEDS: NA CHLORIDE 0.9% 1,000 ML IV SCH (01:40)
[2025-01-16] MEDS: PANTOPRAZOLE 40 MG INJ IVP SCH (01:48)
[2025-01-16 04:26] LABS: Absolute Lymphocytes (CBC) 0.3 K/uL (0.7-4.9); Absolute Monocytes 0.7 K/uL (0.1-1.3); Absolute Neutrophil 9.6 K/uL (1.8-8.0); Basophils % 0.1 % (0-1.3); Hematocrit 37.5 % (36.0-45.0); Hemoglobin 12.9 g/dL (12.0-15.0); Lymphocytes % 3.3 % (15.3-44.8); MCH 34.2 pg (27.0-35.0); MCHC 34.5 g/dL (32.0-36.0); MCV 99.2 fL (80-100); MPV 7.7 fL (7.6-11.3); Monocytes % 6.4 % (3.3-12.3); Neutrophils % 90.2 % (41.7-73.7); Platelets 312 thou/uL (152-406); RBC Red Blood Cell Count 3.78 M/uL (3.86-4.86); Red Cell Distribution Width 13.9 % (12.1-15.2)
[2025-01-16 04:35] LABS: Albumin 3.3 g/dL (3.4-5.0); Albumin/Globulin Ratio 1.2 (1.1-1.8); Anion Gap 8.4 mEq/L (5.0-15.0); Bilirubin Total 0.7 mg/dL (0.2-1.0); Globulin 2.8 g/dL (2.3-3.5); Magnesium 1.9 mg/dL (1.6-2.4); Phosphorus 3.8 mg/dL (2.5-4.9); Potassium 4.4 mEq/L (3.5-5.1); Protein, Total 6.1 g/dL (6.4-8.2)
[2025-01-16 05:17] LABS: Band Neutrophils 5 % (0-1); Differential Total Cells Count 100; Lymphocytes 6 % (15-42); Monocytes 3 % (0-10); Segmented Neutrophils 86 % (40-80)
[2025-01-16 05:18] LABS: Blood Morphology Comment NOT SEEN (NOT SEEN); Platelet Estimate ADEQ
[2025-01-16] MEDS: TRAMADOL HCL 200 MG PO SCH (08:21)
[2025-01-16] MEDS: Ringers Lactate 500 ML IV ONE (08:27)
[2025-01-16] MEDS: HYDROXYCHLOROQUINE 200MG TAB PO SCH (08:30)
[2025-01-16] MEDS: MORPHINE 2 MG/ML SYR IV PRN ×2 (08:45→21:46)
[2025-01-16] MEDS ORDERED: Ringers Lactate 1,000 ML IV SCH (09:00)
[2025-01-16] MEDS: Ringers Lactate 1,000 ML IV SCH (09:32)
--- NOTE | 2025-01-16 14:15 | EKG ---
Test Date: 2025-01-15 Test Time: 18:23:16 Registry Rn: JOHN MEASUREMENT RESULTS: Intervals: Rate: 63 AL: 146 QRSD: 90 QT: 468 QTc: 478 Kirwin: P: 52 AL: 146 QRS: 90 T: 82 INTERPRETIVE STATEMENTS: Normal sinus rhythm Rightward axis Borderline ECG No previous ECG available for comparison Electronically Signed On 01-16-25 14:12:55 CDT by Tee Kaufman
--- NOTE | 2025-01-16 18:10 | P.PN ---
Subjective Date of Service: 01/16/25 Chief Complaint: Intractable nausea and vomiting, abdominal pain Patient with complaints of abdominal pain. Requested for Dilaudid to be changed to morphine which was done Review of Systems General: Unremarkable Eyes: Unremarkable ENT: Unremarkable Respiratory: Unremarkable Cardiovascular: Unremarkable Gastrointestinal: Abdominal Pain Musculoskeletal: Unremarkable Integumentary: Unremarkable Neurological: Unremarkable Physical Examination - Vital Signs Temperature: 99.3 F Blood Pressure: 141/71 Pulse: 99 Respirations: 16 Pulse Ox (%): 97 - Physical Exam General: Alert, Oriented x3 HEENT: Atraumatic, Normocephalic Respiratory: Clear to auscultation bilaterally, Normal air movement Cardiovascular: No edema, Normal pulses, Regular rate/rhythm Gastrointestinal: Normal bowel sounds Musculoskeletal: No clubbing, No swelling, No erythema Neurological: Normal gait, Normal speech, Normal strength at 5/5 x4 extr - Studies Laboratory Data (last 24 hrs) 01/15/25 01/15/25 01/15/25 18:23 18:23 18:23 WBC 10.00 Hgb 12.8 Hct 36.3 Plt Count 349 PT 11.4 INR 1.00 Sodium 140 Potassium 3.6 BUN 7 Creatinine 0.73 Glucose 141 H Magnesium 2.1 Total Bilirubin 0.5 AST 22 ALT 23 Alkaline Phosphatase 63 Lipase > 5000 H Assessment And Plan - Plan 1. Postoperative, ERCP acute pancreatitis - CT of abdomen/pelvis consistent with acute pancreatitis - Lipase markedly elevated greater than 5000 - Supportive therapy, IV fluids, pain control, n.p.o. status 2. DVT prophylaxis - SCDs
[2025-01-16 20:18] LABS: Specific Gravity > 1.030 (1.005-1.030); Sqamous Epithelial <5 /HPF (None Seen); Urine Bacteria None Seen /HPF (<20); Urine Bilirubin NEGATIVE (Negative); Urine Blood Negative (Negative); Urine Clarity Clear (Clear); Urine Color Yellow (Yellow); Urine Culture Reflex Order NOT NEEDED; Urine Glucose NEGATIVE (Negative); Urine Ketones NEGATIVE (Negative); Urine Microscopic Reflex YN ORDER UMIC; Urine Mucus 4+ /HPF (None Seen); Urine Nitrite NEGATIVE (Negative); Urine Protein 1+ (Negative); Urine RBC <5 /HPF (None Seen); Urine Urobilinogen Normal (Normal); Urine WBC <5 /HPF (<5)
[2025-01-16] MEDS: TIZANIDINE 4 MG TABLET PO SCH (21:00)
[2025-01-17 07:59] LABS: Absolute Basophils 0.1 K/uL (0-0.5); Absolute Lymphocytes (CBC) 0.6 K/uL (0.7-4.9); Absolute Neutrophil 12.7 K/uL (1.8-8.0); Basophils % 0.7 % (0-1.3); Eosinophils % 0.1 % (0-4.4); Hematocrit 37.8 % (36.0-45.0); Lymphocytes % 3.9 % (15.3-44.8); MCHC 34.5 g/dL (32.0-36.0); MCV 98.5 fL (80-100); MPV 7.6 fL (7.6-11.3); Neutrophils % 88.3 % (41.7-73.7); Platelets 282 thou/uL (152-406); RBC Red Blood Cell Count 3.84 M/uL (3.86-4.86)
[2025-01-17 08:19] LABS: Anion Gap 9.2 mEq/L (5.0-15.0); Magnesium 1.8 mg/dL (1.6-2.4); Potassium 4.2 mEq/L (3.5-5.1)
--- NOTE | 2025-01-17 09:38 | P.PN ---
Subjective Date of Service: 01/17/25 Chief Complaint: Intractable nausea and vomiting, abdominal pain No complaints, abdominal pain improved Review of Systems 10-point ROS is otherwise unremarkable Physical Examination - Vital Signs Temperature: 98.7 F Blood Pressure: 133/77 Pulse: 101 Respirations: 20 Pulse Ox (%): 90 - Physical Exam General: Alert, Oriented x3 HEENT: Atraumatic Neck: Supple Cardiovascular: No edema, Normal pulses, Regular rate/rhythm Gastrointestinal: Normal bowel sounds, Soft and benign, Non-distended Neurological: Normal gait, Normal speech, Normal strength at 5/5 x4 extr - Studies Laboratory Data (last 24 hrs) 01/16/25 03:57 Lipase > 5000 H Assessment And Plan - Plan 1. Postoperative, ERCP acute pancreatitis - CT of abdomen/pelvis consistent with acute pancreatitis - Lipase markedly elevated greater than 5000 -Abdominal pain improved Continue supportive therapy: IV fluids, pain control -Advanced to clear liquid diet 2. DVT prophylaxis - SCDs
[2025-01-18 06:43] LABS: Absolute Eosinophils 0.1 K/uL (0-0.5); Absolute Lymphocytes (CBC) 0.3 K/uL (0.7-4.9); Absolute Monocytes 0.9 K/uL (0.1-1.3); Absolute Neutrophil 11.8 K/uL (1.8-8.0); Basophils % 0.1 % (0-1.3); Eosinophils % 0.5 % (0-4.4); Hematocrit 31.4 % (36.0-45.0); Hemoglobin 11.1 g/dL (12.0-15.0); Lymphocytes % 2.7 % (15.3-44.8); MCH 35.1 pg (27.0-35.0); MCHC 35.3 g/dL (32.0-36.0); MCV 99.4 fL (80-100); MPV 7.9 fL (7.6-11.3); Neutrophils % 89.7 % (41.7-73.7); Platelets 216 thou/uL (152-406); RBC Red Blood Cell Count 3.16 M/uL (3.86-4.86); Red Cell Distribution Width 13.8 % (12.1-15.2)
[2025-01-18 07:02] LABS: Albumin 2.4 g/dL (3.4-5.0); Albumin/Globulin Ratio 0.9 (1.1-1.8); Anion Gap 5.6 mEq/L (5.0-15.0); Bilirubin Total 0.8 mg/dL (0.2-1.0); Globulin 2.8 g/dL (2.3-3.5); Potassium 3.6 mEq/L (3.5-5.1); Protein, Total 5.2 g/dL (6.4-8.2)
[2025-01-18] MEDS: POTASSIUM CL SA 10 MEQ TAB PO ONE (08:44)
--- NOTE | 2025-01-18 11:10 | P.PN ---
Subjective Date of Service: 01/18/25 Chief Complaint: Intractable nausea and vomiting, abdominal pain No complaints, abdominal pain improved Review of Systems 10-point ROS is otherwise unremarkable Physical Examination - Vital Signs Temperature: 98.2 F Blood Pressure: 112/72 Pulse: 99 Respirations: 18 Pulse Ox (%): 98 - Physical Exam General: Alert, Oriented x3 HEENT: Atraumatic, Normocephalic Neck: Supple Respiratory: Clear to auscultation bilaterally Cardiovascular: No edema, Normal pulses, Regular rate/rhythm Gastrointestinal: Normal bowel sounds, Soft and benign, Non-distended Neurological: Normal gait, Normal strength at 5/5 x4 extr Assessment And Plan - Plan 1. Postoperative, ERCP acute pancreatitis - CT of abdomen/pelvis consistent with acute pancreatitis - Lipase markedly elevated greater than 5000 -Abdominal pain improved Continue supportive therapy: IV fluids, pain control -Advanced to soft diet 2. DVT prophylaxis - SCDs
[2025-01-18] MEDS: Ringers Lactate 1,000 ML IV SCH (15:39)
[2025-01-18 21:39] VITALS: O2SAT 96
[2025-01-19 05:54] LABS: Absolute Eosinophils 0.2 K/uL (0-0.5); Absolute Lymphocytes (CBC) 0.4 K/uL (0.7-4.9); Absolute Monocytes 0.8 K/uL (0.1-1.3); Absolute Neutrophil 8.7 K/uL (1.8-8.0); Basophils % 0.5 % (0-1.3); Eosinophils % 1.8 % (0-4.4); Hematocrit 31.5 % (36.0-45.0); Hemoglobin 10.8 g/dL (12.0-15.0); Lymphocytes % 3.6 % (15.3-44.8); MCH 34.1 pg (27.0-35.0); MCHC 34.3 g/dL (32.0-36.0); MCV 99.3 fL (80-100); MPV 7.9 fL (7.6-11.3); Monocytes % 8.3 % (3.3-12.3); Neutrophils % 85.8 % (41.7-73.7); Nucleated Red Blood Cells % 0.1 % (0-0); Platelets 205 thou/uL (152-406); RBC Red Blood Cell Count 3.17 M/uL (3.86-4.86); Red Cell Distribution Width 14.1 % (12.1-15.2)
[2025-01-19 06:13] LABS: Albumin 2.4 g/dL (3.4-5.0); Albumin/Globulin Ratio 0.9 (1.1-1.8); Anion Gap 7.5 mEq/L (5.0-15.0); Bilirubin Total 0.4 mg/dL (0.2-1.0); Globulin 2.8 g/dL (2.3-3.5); Potassium 3.5 mEq/L (3.5-5.1); Protein, Total 5.2 g/dL (6.4-8.2)
--- NOTE | 2025-01-19 07:03 | P.PN ---
Date of Service: 01/19/25
[2025-01-19 07:27] LABS: Lipase 54 U/L (13-75)
[2025-01-19 07:30] LABS: Bilirubin Direct < 0.2 mg/dL (0-0.2)
[2025-01-19] MEDS: POTASSIUM CL SA 10 MEQ TAB PO ONE (08:09)
[2025-01-19 09:04] VITALS: BP 118/73; TEMP 97.6
--- NOTE | 2025-01-19 10:16 | P.DS ---
Admission Date: 01/16/25 Discharge Date: 01/19/25 Disposition: ROUTINE DISCHARGE Reason for Admission: Intractable nausea and vomiting, abdominal pain Brief History of Present Illness: 49-year-old female with known past medical history of SLE currently on Plaquenil, and recently choledocholithiasis status post ERCP with common bile duct stent placement on 01/15. She presented to the ER a few hours after her procedure complaining of intractable nausea and vomiting, and abdominal pain. She was admitted for abdominal pain, was noted to have elevated lipase more than 5000, elevated LFTs, including bilirubin. Treated with IV fluids, as needed a nalgesics, dietary rest. Improved with treatment plan. Tolerating diet follow- up with PCP/GI after discharge in 1 to 2 weeks General: Alert, Oriented x3, HEENT: Normocephalic, Atraumatic, Normocephalic Neck: Supple Respiratory: Clear to auscultation bilaterally, Normal air movement Cardiovascular: Regular rate/rhythm, No edema, Normal pulses Capillary refill: <2 Seconds Gastrointestinal: Soft and benign Musculoskeletal: No clubbing, No swelling Integumentary: No breakdown, No significant lesion Neurological: Normal speech, Normal strength at 5/5 x4 extr Lymphatics: No axilla or inguinal lymphadenopathy Hospital Course: Assessment Intractable nausea vomiting, improved with IV fluids, as needed antiemetics, bowel rest. Acute pancreatitis status post status post ERCP with biliary stent placement, Systemic lupus erythematous, resume home meds after discharge, follow-up with PCP/rheumatology after discharge Ovarian cyst follow-up with [employer] [facility] after discharge CT findings bilateral adnexal cystic lesions, with posterior trace pelvic fluid. Largest cystic lesion is on the right measuring 3.8 cm. Uterus is retroverted. Follow-up with [employer] [facility]/PCP after discharge Lipase level admission greater than 5000, repeat 54, Continue home medicines as previously prescribed GOAL: Clear understanding of disease process INSTRUCTIONS: Physician Discharge Instructions: -Follow-up with with [employer] [facility] after discharge for ovarian cyst -Follow-up with GI after discharge in 1 to 2 weeks -Follow-up with PCP in 1 to 2 weeks -Please call nursing station at [phone] if any nursing or medication questions -Return to the emergency room if symptoms worsen Diet: ADA, low sodium Activity: Fall precautions Vital Signs/Physical Exam: Temp Pulse Resp BP Pulse Ox 97.6 F 85 16 118/73 98 01/19/25 08:00 01/19/25 08:00 01/19/25 08:00 01/19/25 08:00 01/19/25 08:00 Laboratory Data at Discharge: WBC 10.10 thou/uL (4.3-10.9) 01/19/25 05:35 Hgb 10.8 g/dL (12.0-15.0) L 01/19/25 05:35 Hct 31.5 % (36.0-45.0) L 01/19/25 05:35 Plt Count 205 thou/uL (152-406) 01/19/25 05:35 PT 11.4 SECONDS (10-13.0) 01/15/25 18:23 INR 1.00 01/15/25 18:23 Sodium 138 mEq/L (136-145) 01/19/25 05:35 Potassium 3.5 mEq/L (3.5-5.1) 01/19/25 05:35 BUN 6 mg/dL (7-18) L 01/19/25 05:35 Creatinine 0.47 mg/dL (0.55-1.02) L 01/19/25 05:35 Glucose 106 mg/dL (74-106) 01/19/25 05:35 Phosphorus 3.8 mg/dL (2.5-4.9) 01/16/25 03:57 Magnesium 2.0 mg/dL (1.6-2.4) 01/18/25 06:30 Total Bilirubin Cancelled 01/19/25 Unknown AST Cancelled 01/19/25 Unknown ALT Cancelled 01/19/25 Unknown Alkaline Phosphatase Cancelled 01/19/25 Unknown Lipase 54 U/L (13-75) 01/19/25 05:35 Home Medications: Hydroxychloroquine [Plaquenil] 200 mg PO BID 01/16/25 Ondansetron [Zofran (Odt)*] 4 mg PO TID 01/16/25 Tizanidine [Zanaflex] 4 mg PO BEDTIME 01/16/25 Tramadol HCl [Conzip] 200 mg PO DAILY 01/16/25 Followup: NONE,NONE [Primary Care Provider] -
== END 2025-01-19 11:42 | disposition home or self-care (01) | DRG 393 ==
LOC: ER 17:27 → 2ND 23:31 → OBSVTOIN 01-16 18:11
PROVIDERS: ADMIT Internal Medicine; ATTEND Hospitalist
DX: K91.89 Other postprocedural complications and disorders of digestive system (principal); K85.90 Acute pancreatitis without necrosis or infection, unspecified; M79.7 Fibromyalgia; M32.9 Systemic lupus erythematosus, unspecified; Z88.0 Allergy status to penicillin; Z88.2 Allergy status to sulfonamides; Z90.49 Acquired absence of other specified parts of digestive tract
CPT/HCPCS: 36415; 71045; 74177; 80048; 80053; 80076; 81001; 82248; 83605; 83690; 83735; 84100; 84484; 85025; 85610; 87040; 93005; 96361; 96374; 96375; 99285; G0378; J1171; J2270; J2405; J2470; J2765; J3360; J7030; J7120; Q9967